=== PATIENT | male | born 1975 | race Asian ===

== ENCOUNTER 2020-06-04 18:00 | Outpatient (REF) | payer MEDICAID, SELFPAY ==
[2020-06-06 11:56] LABS: HSV 1 DNA Result Negative (Negative); HSV 2 DNA Result Negative (Negative)
== END 2020-06-04 18:20 ==
LOC: NCHCN 18:00
PROVIDERS: PCP Nurse Practitioner; Visit Provider Family Medicine
DX: N48.89 Other specified disorders of penis (principal)
CPT/HCPCS: 87529

== ENCOUNTER 2021-12-16 17:12 | Outpatient (REF) | payer MEDICAID, SELFPAY ==
[2021-12-16 14:39] LABS: Abs Immature Grans 0.02 10^3/uL (0.0-0.06); Absolute Basophil Count 0.02 10^3/uL (0.0-0.2); Absolute Eosinophil Count 0.09 10^3/uL (0.0-0.7); Absolute Lymphocyte Count 1.75 10^3/uL (1.2-3.4); Absolute Monocyte Count 0.23 10^3/uL (0.1-0.8); Absolute Neutrophil Count 3.88 10^3/uL (1.2-6.7); Basophils % 0.3; Eosinophils % 1.5; HCT 44.9 % (40.0-50.0); HGB 14.8 g/dL (13.5-17.5); Immature Grans % 0.3; Lymphocytes % 29.2; MCH 28.2 pg (27.0-33.0); MCV 86 fL (80-95); MPV 11.2 fL (8.0-11.0); Monocytes % 3.8; Neutrophils % 64.9; Platelet Count 302 10^3/uL (130-400); RBC 5.24 10^6/uL (4.36-5.78); RDW 13.5 % (11.8-14.1); RDW-SD 42.4 fL; WBC 5.99 10^3/uL (4.4-10.8)
[2021-12-16 15:05] LABS: Cholesterol 216 mg/dL (<200); HDL Cholesterol 29 mg/dL (40-60); Triglyceride 456 mg/dL (<150)
[2021-12-16 15:07] LABS: ALT 62 U/L (16-63); AST 27 U/L (15-37); Albumin 3.6 g/dL (3.4-5.0); Alkaline Phosphatase 85 U/L (46-116); Anion Gap 13.3 mmol/L (3-11); BUN 20 mg/dL (7-18); Bilirubin, Total 0.3 mg/dL (0.2-1.0); CO2 25.7 mmol/L (21.0-32.0); CREATININE 1.1 mg/dL (0.70-1.30); Calcium 8.7 mg/dL (8.5-10.1); Chloride 103 mmol/L (98-107); Glucose 185 mg/dL (74-106); Potassium 3.7 mmol/L (3.5-5.1); Sodium 142 mmol/L (136-145); TSH 1.42 uIU/mL (0.36-3.74); Total Protein 7.2 g/dL (6.4-8.2)
[2021-12-16 15:40] LABS: LDL CHOLESTEROL 120 mg/dL (<100)
== END 2021-12-16 17:13 | disposition home or self-care (01) ==
LOC: NCHCN 17:12
PROVIDERS: PCP Nurse Practitioner; Visit Provider Nurse Practitioner Family
DX: R05.3 Chronic cough (principal); G47.33 Obstructive sleep apnea (adult) (pediatric); J30.2 Other seasonal allergic rhinitis; R53.83 Other fatigue; E78.41 Elevated Lipoprotein(a)
CPT/HCPCS: 80053; 80061; 83721; 84443; 85025

== ENCOUNTER → 2021-12-30 01:59 | Outpatient (CLI) | payer MEDICAID, SELFPAY ==
--- NOTE | 2021-12-30 | DI.RAD_ITS ---
Exam(s) XR CHEST 2V PA LATERAL EXAM: XR CHEST 2V PA LATERAL CLINICAL HISTORY: CHRONIC COUGH, R05.3. TECHNIQUE: 2D digital imaging was performed. COMPARISON: CR CHEST 2 VIEWS PA,LAT from 01/20/2014 FINDINGS: 2 views: Heart size is normal. The mediastinum is not widened. Lungs are clear. No infiltrates nor pleural effusions. IMPRESSION: No acute pulmonary findings. DATA REPOSITORY: RADIATION DOSE DELIVERED:
== END ==
PROVIDERS: PCP Nurse Practitioner; Visit Provider Nurse Practitioner Family
DX: R05.3 Chronic cough (principal)
CPT/HCPCS: 71046

== ENCOUNTER 2022-01-15 18:46 | Outpatient (REF) | payer MEDICAID, SELFPAY | END 2022-01-15 18:47 | disposition home or self-care (01) | LOC: NCHCN 18:46 | PROVIDERS: PCP Nurse Practitioner; Visit Provider Nurse Practitioner Family | DX: R73.9 Hyperglycemia, unspecified (principal) | CPT/HCPCS: 83036 ==

== ENCOUNTER 2022-08-11 18:23 | Outpatient (REF) | payer MEDICAID, SELFPAY ==
[2022-08-11 14:53] LABS: Abs Immature Grans 0.01 10^3/uL (0.0-0.06); Absolute Basophil Count 0.02 10^3/uL (0.0-0.2); Absolute Eosinophil Count 0.11 10^3/uL (0.0-0.7); Absolute Lymphocyte Count 1.75 10^3/uL (1.2-3.4); Absolute Monocyte Count 0.37 10^3/uL (0.1-0.8); Absolute Neutrophil Count 2.87 10^3/uL (1.2-6.7); Basophils % 0.4; Eosinophils % 2.1; HGB 14.4 g/dL (13.5-17.5); Immature Grans % 0.2; Lymphocytes % 34.1; MCH 28.9 pg (27.0-33.0); MCHC 33.5 % (32.0-36.0); MCV 86 fL (80-95); MPV 10.7 fL (8.0-11.0); Monocytes % 7.2; Platelet Count 282 10^3/uL (130-400); RBC 4.98 10^6/uL (4.36-5.78); RDW-SD 40.5 fL; WBC 5.13 10^3/uL (4.4-10.8)
[2022-08-11 15:39] LABS: ALT 81 U/L (16-63); AST 29 U/L (15-37); Albumin 3.6 g/dL (3.4-5.0); Alkaline Phosphatase 84 U/L (46-116); Anion Gap 10.1 mmol/L (3-11); BUN 12 mg/dL (7-18); Bilirubin, Total 0.4 mg/dL (0.2-1.0); CO2 26.9 mmol/L (21.0-32.0); Calcium 9.1 mg/dL (8.5-10.1); Calculated LDL 130 mg/dL (<100); Chloride 105 mmol/L (98-107); Cholesterol 216 mg/dL (<200); Estimated GFR 93.42 (mL/min/1.73m2); Glucose 122 mg/dL (74-106); HDL Cholesterol 33 mg/dL (40-60); Potassium 3.8 mmol/L (3.5-5.1); Sodium 142 mmol/L (136-145); Total Protein 6.6 g/dL (6.4-8.2); Triglyceride 266 mg/dL (<150); Vitamin B12 1512 pg/mL (193-986)
[2022-08-11 15:46] LABS: Hemoglobin A1C 5.8 % (<5.7)
== END 2022-08-11 18:24 | disposition home or self-care (01) ==
LOC: NCHCN 18:23
PROVIDERS: PCP Nurse Practitioner; Visit Provider Nurse Practitioner Family
DX: R53.83 Other fatigue (principal); E78.41 Elevated Lipoprotein(a); F41.8 Other specified anxiety disorders; R73.9 Hyperglycemia, unspecified; G47.33 Obstructive sleep apnea (adult) (pediatric); R79.89 Other specified abnormal findings of blood chemistry
CPT/HCPCS: 80053; 80061; 82607; 83036; 85025

== ENCOUNTER 2023-04-14 01:21 | Outpatient (CLI) | payer MEDICAID, SELFPAY ==
[2023-04-14] MEDS: Levalbuterol HFA 15 GM INH 4 PUFF IH (14:36)
[2023-04-14] MEDS: Inhaler, Assist Device 1 EACH MC (14:37)
--- NOTE | 2023-04-17 08:53 | W.PFT ---
Date of service: 04/14/23 Time of Service: 13:10 Pulmonary Function Test Result Indications: Dyspnea Interpretation Spirometry: There is no airflow limitation. No significant bronchodilator response. Restrictive appearing spirometry. Lung Volumes: There is mild restrictive lung disease. Diffusion Capacity: Unable to perform Airway Pressure: Normal airways resistance. Impression Mild restrictive lung disease. Patient unable to perform DLCO, can consider chest imaging to assess for ILD and can consider muscle pressure testing to assess for muscular weakness as a cause. Clinical Correlation therefore is recommended.
== END 2023-04-14 01:22 | disposition home or self-care (01) ==
LOC: RT 01:21
PROVIDERS: PCP Nurse Practitioner Family; Visit Provider Nurse Practitioner Family
DX: R06.09 Other forms of dyspnea (principal)
CPT/HCPCS: 94060; 94726

== ENCOUNTER 2024-04-05 21:45 | Outpatient (REF) | payer MEDICAID, SELFPAY ==
[2024-04-05 16:30] LABS: Abs Immature Grans 0.02 10^3/uL (0.0-0.06); Absolute Basophil Count 0.02 10^3/uL (0.0-0.2); Absolute Eosinophil Count 0.12 10^3/uL (0.0-0.7); Absolute Lymphocyte Count 1.89 10^3/uL (1.2-3.4); Absolute Monocyte Count 0.37 10^3/uL (0.1-0.8); Absolute Neutrophil Count 4.25 10^3/uL (1.2-6.7); Basophils % 0.3 %; Eosinophils % 1.8 %; Immature Grans % 0.3 %; Lymphocytes % 28.3 %; MCH 30.2 pg (27.0-33.0); MCHC 33.3 % (32.0-36.0); MCV 91 fL (80-95); MPV 10.7 fL (8.0-11.0); Monocytes % 5.5 %; Neutrophils % 63.8 %; Platelet Count 330 10^3/uL (130-400); RBC 4.97 10^6/uL (4.36-5.78); RDW 13.1 % (11.8-14.1); RDW-SD 42.6 fL; WBC 6.67 10^3/uL (4.4-10.8)
[2024-04-05 17:48] LABS: ALT 54 U/L (16-63); AST 21 U/L (15-37); Alkaline Phosphatase 85 U/L (46-116); Anion Gap 13.1 mmol/L (3-11); BUN 29 mg/dL (7-18); Bilirubin, Total 0.43 mg/dL (0.2-1.0); CO2 26.9 mmol/L (21.0-32.0); Calcium 9.3 mg/dL (8.5-10.1); Chloride 102 mmol/L (98-107); Cholesterol 277 mg/dL (<200); Estimated GFR 92.26 (mL/min/1.73m2); Glucose 114 mg/dL (74-106); HDL Cholesterol 35 mg/dL (40-60); Sodium 142 mmol/L (136-145); Total Protein 7.7 g/dL (6.4-8.2); Triglyceride 884 mg/dL (<150)
[2024-04-05 18:03] LABS: LDL CHOLESTEROL 124 mg/dL (<100)
[2024-04-05 18:55] LABS: Hemoglobin A1C 5.1 % (<5.7)
--- OUTSIDE RECORDS SUMMARY | 2024-04-05 21:48 | XMS_ITS | Data Portability ---
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 At this point in time, Abdullahi generally declines further workup and/or evaluation for complaints of fatigue, mild dyspnea on exertion, and history of severe ALEXY. Current medications include cetirizine and Flonase. Details below. Abdullahi agrees that 1 year follow-up for routine annual exam, will plan on yearly labs at this time. Emphasized the importance of follow-up earlier should he develop any worsening or new symptoms and/or is ready for further evaluation and discussion. Not available 12/14/2023 12:04:32 04/05/2024 04/05/2024 Abdullahi declines a emergency medical technician basic today. Craig language Cantonese. Fluent in conversational Hebrew. [email or web address] Not available 04/05/2024 10:07:19 Plan of Treatment Reminders Order Date Submit Date Provider Last Modified By Organization Details Last Modified Time Details Appointments Follow Up 30 2023 09:00A M Chloe Cross Not available Not available Not available Nurse Visit 20 2023 10:00A M [facility] Nursing Staff Not available Not available Not available Annual Wellness Exam 40 2024 10:00A M Chloe Cross Not available Not available Not available Lab HbA1c (hemoglo bin A1c), blood - 1 mint and 1 lav tube collecte d from right ac, pt tolerate d well. 2023 [email or web address] [facility] (Registration ), [address] [place] [address] [place], [id number], 04/05/2024 12:27:52 lipid panel, serum - 1 mint and 1 lav tube collecte d from right ac, pt tolerate d well. [address] [facility] (Registration ), [address] [place] [address] [place], [id number], 04/05/2024 12:27:52 CBC w/ auto diff - 1 mint and 1 lav tube collecte d from right ac, pt tolerate d well. 2023 [facility] (Registration ), [address] [place] [address] [place], [id number], 04/05/2024 16:38:04 CMP, serum or plasma - 1 mint and 1 lav tube collecte d from right ac, pt tolerate d well. 2023 [facility] (Registration ), [address] [place] [address] [place], [address], 04/05/2024 17:55:16 Referral None recorded . Procedures None recorded . Surgeries None recorded . Imaging CT, abdomen + pelvis, w/ contrast - 2 weeks right lower ABD tenderne ss w/ active guarding + diarrhea . 2023 [facility] (Radiology), [address] [place] [address] [place], [address], 04/05/2024 11:45:29 Medication Orders None recorded . Patient TargetsNo targets recorded. Patient Instructions Encounter Date Encounter Id Patient Instructions Last Modified By Organization Details Last Modified Time 12/14/2023 [id number] 1 year follow up for your annual wellness exam. We will plan on blood work during this appointment. Not available 12/14/2023 11:41:28 04/05/2024 [id number] When You Want to Lose Weight: Care Instructions [email or web address] Not available 04/05/2024 12:27:52 back care and preventing injuries: care instructions [email or web address] Not available 04/05/2024 12:27:52 getting back to normal after low back pain: care instructions [email or web address] Not available 04/05/2024 12:27:52 learning about relief for back pain Not available 04/05/2024 12:27:52 possible appendicitis: care instructions [email or web address] Not available 04/05/2024 12:27:52 1 week follow up. Blood work today. CT scan ordered for your stomach. Please go to the ER if your stomach symptoms worsen. [email or web address] Not available 04/05/2024 09:42:11 Reason for Referral None Reported. Results Created Date Observation Date Name Description Value Unit Range Abnormal Flag Note LastModifiedBy Organization Detail LastModifiedTime 02/21/20 24 12/30/2021 XR, chest No observ ation record ed. [email or web address] Not Available 02/20 22:10:05 02/21/20 24 12/30/2021 imagi ng/di agnos tic resul t No observ ation record ed. [email or web address] Not Available 02/20 22:10:10 Result Notes None recorded. Problems Name Problem SNOMED Code Status Onset Date Resolution Date Notes Provider Name and Address Organization Details Recorded Time Obstruct jimbo sleep apnea syndrome 65331908 Active 2014 SEVERE - refuses treatmen t CHLOE CROSS, [employer] [address], [place], [address] , [facility] 4 11:52:41 Anxiety disorder 916903215 Active 2015 RHYS warren, [place] - [facility] 4 09:07:47 Traumati c or non-trau matic injury 966413825 Completed 201502/14/2016 01/11/20 16 - Comments only - Roxanne Ruffin MD - The appearan ce and distribu tion of his rash appear more to be like flea bites then recurren t scabies. I have told him to stop using the permethr in. He ronda use some hydrocor tisone cream on the itchy bites, and I have suggeste d using daily cetirizi ne 10 mg, which would help both with the itching from flea bites, as well as allergic rhinitis . I told him it would be importan t to talk to the animals that to treat them for fleas. Problem Code: T14.90; Problem Code Type: ICD-10; Not Available [facility] 3 04:28:49 Dermatop hytosis 09924742 Active 2020 RHYS warren, [facility] 4 09:07:58 Screenin g for malignan t neoplasm of colon Completed 202010/05/2023 Irma Atkins [facility] 4 11:37:10 Acute upper respirat ory infectio n 08164625 Completed 202110/05/2023 Irma warren, [facility] 4 11:37:28 Seasonal allergic rhinitis 217362920 Active 2021 RHYS warren, [facility] 4 09:08:35 Chronic cough 52573583 Active 2021 RHYS WAYNE [facility] 4 09:07:52 Lipoprot ein above referenc e range 125738681 [facility] 09:08:19 Fatigue 47671335 Active 2021 RHYS warren, [facility] 4 09:08:14 Hypergly cemia 06312780 Completed 202103/13/2023 Problem Code: R73.9; Problem Code Type: ICD-10; Not Available [facility] 4 05:37:55 Adult health examinat ion Completed 201403/19/2021 Problem Code: Z00.00; Problem Code Type: ICD-10; Irma warren, [facility] 4 11:37:04 Eczema 51167431 Completed 202003/19/2021 Problem Code: L30.9; Problem Code Type: ICD-10; Not Available [facility] 3 04:28:52 Cough 86919085 Completed 201509/05/2015 Problem Code: R05; Problem Code Type: ICD-10; Not Available [facility] 3 04:28:53 Heartbur n 54753414 Completed 201306/07/2019 Problem Code: R12; Problem Code Type: ICD-10; Not Available [facility] 3 04:28:53 Localize d eruption of skin 547076074 Completed 201409/05/2015 Problem Code: R21; Problem Code Type: ICD-10; Not Available [facility] 3 04:28:53 Disorder of penis 78795778 Completed 201903/19/2021 Problem Code: N48.9; Problem Code Type: ICD-10; Not Available [facility] 3 04:28:53 Infectio n screenin g Completed 201502/23/2017 Problem Code: Z11.9; Problem Code Type: ICD-10; Not Available [facility] 3 04:28:53 Pain in right arm 466675686 Completed 201903/19/2021 Problem Code: M79.601; Problem Code Type: ICD-10; Not Available [facility] 3 04:28:54 Adult health examinat ion Completed 201508/25/2016 Problem Code: Z00.00; Problem Code Type: ICD-10; [facility] 4 11:37:04 Screenin g for disorder Completed 201703/19/2021 Problem Code: Z13.89; Problem Code Type: ICD-10; Not Available [facility] 3 04:28:54 Pain of left knee joint 58345942837 4107 Completed 201903/19/2021 Problem Code: M25.562; Problem Code Type: ICD-10; Not Available [facility] 3 04:28:55 Dyspnea 512105520 Completed 201009/05/2015 RHYS warren, [facility]. 4 09:08:04 Adult health examinat ion Completed 202210/05/2023 Tia Milly kelvin, [facility]. 4 11:37:04 Dyspnea 088885968 Active 2022 RHYS warren, [facility]. 4 09:08:03 Prediabe matti 673725866 Active 2022 RHYS warren, [facility]. 4 09:08:29 Elevated blood-pr essure reading without diagnosi s of hyperten timoteo 186939075 Active 2022 RHYS warren, [facility]. 4 09:08:09 Lipoma of chest wall 642751288 Active 2010 LT chest Tia Milly kelvin, [facility]. 4 11:41:57 Dyspnea on exertion 53547493 Active [address] [place], [address] , [facility] 4 11:54:48 Right lower quadrant pain 874491344 Active [address], [facility] [address] , [facility]. 4 09:33:18 Overweig ht 522060762 Active [address], [place], [address] , [facility]. 4 09:33:34 Low back pain 391440723 Active [address], [place], [address] , [place] [facility], [facility]. 09:34:56 Problem Notes None recorded. Procedures Surgical History None recorded. Imaging Results Imaging Date Name Status LastModified by Organiz ation Details LastModified Time 12/30/2021 XR, chest completed Information no t available 02/21/2024 22:10:05 12/30/2021 imaging/diag nostic result completed Information not available 02/21/2024 22:10:10 Procedure Notes None recorded. Medical Equipment None Reported. Medications Name Sig Start Date Stop Date Status Note LastModified by Organization Details LastModified Time biotin 10 mg tablet once a day 11/28 completed OTC Not Available Not Available Not Available Augmentin 875 mg-125 mg tablet Take 1 tablet by mouth twice a day 12/05 completed Not Available Not Available Not Available cetirizine 10 mg tablet TAKE 1 TABLET BY MOUTH EVERY DAY 2023 active Not Available Not Available Not Avai lable azithromyci n 250 mg tablet Take 2 by mouth now, then take 1 by mouth daily x 4 days 07/30 completed Not Available Not Available Not Available aspirin 325 mg tablet Take 1 tab by mouth PRN 09/05 completed Not Available Not Available Not Available Diphenhydra mine HCl (Sleep) 25 mg tablet 1tab .prn allergies 02/16 completed Not Available Not Available Not Available Saman's wort 300 mg tablet 08/24 completed Not Available Not Available Not Available Vitamins B Complex capsule one tab daily 2018 active OTC Not Available Not Available Not Avai lable Vitamin C 100 mg tablet 1000 mg daily 2016 active Not Available Not Available Not Avai lable Elimite 5 % topical cream Apply to total body, (except face and scalp). Leave on 14 hrs, shower off in morning. 09/04 completed Not Available Not Available Not Available hydrocortis one 2.5 % topical cream apply cream twice a day as needed to bites on legs. 01/24 completed Not Available Not Available Not Available mupirocin 2 % topical ointment APPLY EXTERNALL Y TO THE AFFECTED AREA TWICE DAILY FOR 1 WEEK OR UNTIL RESOLVED 09/05 completed Not Available Not Available Not Available ketoconazol e 2 % topical cream Apply twice a day as needed 11/28 completed Not Available Not Available Not Available clotrimazol e 1 % topical cream apply twice daily to affected area as directed 06/19 completed Not Available Not Available Not Available naproxen 500 mg tablet Take 1 tab by mouth twice daily as needed for pain 07/04 completed Not Available Not Available Not Available Vitamin B-12 1,000 mcg tablet 2 tabs daily 06/07 completed OTC Not Available Not Available Not Available glucosamine sulfate 1,000 mg capsule one tab daily 09/05 completed OTC Not Available Not Available Not Available Acetaminoph en PM 25 mg-500 mg tablet liquid medicatio n (OTC) Premier Value 2016 active Not Available Not Available Not Avai lable biotin once daily 2020 active OTC Not Available Not Available Not Avai lable Vitamin-C 1000 mg once a day 11/28 completed Not Available Not Available Not Available vitamin E (dl, acetate) 180 mg (400 unit) capsule 1 tab daily 09/05 completed OTC Not Available Not Available Not Available PreserVisio n AREDS-2 (with omega-3) 250 mg-2.5 mg-0.5 mg capsule 08/24 completed Not Available Not Available Not Available Dymista 137 mcg-50 mcg/spray nasal spray [place] 1 spray into both nostrils twice a day 01/30 completed Not Available Not Available Not Available psyllium husk 0.4 gram capsule Take 1 capsule every day by oral route as directed. active Not Available Not Available No t Available Voltaren Arthritis Pain 1 % topical gel Apply every six hours as needed 11/28 completed Not Available Not Available Not Available Vitals Date Recorded Body height Body mass index (BMI) Body weight Body temperature Oxygen saturation Oxygen saturation in Arterial blood by Pulse oximetry Heart rate Systolic blood pressure Diastolic blood pressure Provider Name and Address Organization Details Last Updated DateTime 4 165.1 cm 25.8 kg/m2 28206.5 2 g 97.9 [degF] 98 % 98 % 88 /min 120 mm[Hg] 74 mm[Hg] Kaley Moore MA [facility] 11:21:01 Date Recorded Body height Body mass index (BMI) Body weight Body temperature Heart rate Oxygen saturation Oxygen saturation in Arterial blood by Pulse oximetry Systolic blood pressure Diastolic blood pressure Provider Name and Address Organization Details Last Updated DateTime 165.1 cm 26.6 kg/m2 93400.7 8 g 97.7 [degF] 104 /min 97 % 97 % 115 mm[Hg] 69 mm[Hg] Kaley Moore MA [facility] 09:05:41 Social History Question Answer Notes LastModified by Organizat ion Details LastModified Time Tobacco Smoking Status Never Smoker Kaley Moore MA null, [facility] 04/05/2024 09:06:22 What Was The Date Of Your Most Recent Tobacco Screening? 04/05/2024 [email or web address] Information not available 04/05/2024 Has Tobacco Cessation Counseling Been Provided? No [email or web address] Information not available 04/05/2024 Do You Or Have You Ever Used Any Other Forms Of Tobacco Or Nicotine? No [email or web address] Information not available 04/05/2024 Sex: Male Functional Status None recorded. Mental Status None recorded. Family History Relationship Description Onset Age of this Age Resolved Age Notes LastModified by Organization Details LastModified Time Mother Family history unknown [email or web address] Not available 2022 04:01:07 Medical History No medical history recorded. Immunizations Vaccine Type Date Status Provider Name and Address Organization Details Recorded Time COVID-19, mRNA, LNP-S, PF, sanjeev-sucrose, 30 mcg/0.3 mL 09/02/2023 completed Adelia Kim RN [facility] 09/02/2023 09:37:11 Influenza, split virus, trivalent, PF 04/05/2024 completed CHLOE CROSS, BRE[employer] [address], [place], [address], [facility] 04/05/2024 10:00:48 MMR 02/06/1993 completed Not Available [facility] 05:49:18 MMR 02/21/2016 completed Not Available [facility] 05:49:18 DTaP, unspecified formulation 02/06/1993 completed Not Available [facility] 04/17/2023 05:49:18 DTaP, unspecified formulation 03/22/1993 completed Not Available [facility] 04/17/2023 05:49:18 Tdap 03/05/2016 completed Not Available [facility] 05:49:19 Tdap 05/28/2011 completed Not Available [facility] 05:49:19 Influenza, split virus, trivalent, preservative 09/13/2015 completed Not Available [facility] 04/17/2023 05:49:20 Influenza, split virus, trivalent, preservative 02/16/2015 completed Not Available [facility] 04/17/2023 05:49:20 Influenza, split virus, trivalent, preservative 02/21/2016 completed Not Available [facility] 04/17/2023 05:49:20 Influenza, split virus, quadrivalent, PF 03/19/2021 completed Not Available [facility] 04/17/2023 05:49:20 Influenza, split virus, quadrivalent, PF 05/27/2019 completed Not Available [facility] 04/17/2023 05:49:20 Influenza, split virus, quadrivalent, preservative 02/23/2017 completed Not Available [facility] 04/17/2023 05:49:21 Influenza, split virus, quadrivalent, preservative 05/10/2018 completed Not Available [facility] 04/17/2023 05:49:21 varicella 02/21/2016 completed Not Available [facility] 05:49:21 varicella 04/29/2016 completed Not Available [facility] 05:49:22 SARS-COV-2 (COVID-19) vaccine, UNSPECIFIED 03/04/2022 completed Not Available [facility] 04/17/2023 05:49:22 polio, unspecified formulation 02/06/1993 completed Not Available [facility] 04/17/2023 05:49:23 polio, unspecified formulation 03/22/1993 completed Not Available [facility] 04/17/2023 05:49:23 Influenza, split virus, quadrivalent, PF 02/25/2023 completed Not Available [facility] 06/19/2023 05:33:16 Past Encounters Encounter ID Performer Location Encounter Start Date Encounter Closed Date Diagnosis/Indication Diagnosis SNOMED-CT Code Diagnosis ICD10 Code [id number] Adelia Kim RN [facility] [address] [place] [address] 09/02/2023 09:21:35 09/02/2023 09:32:17 Administration of SARS-CoV-2 antigen vaccine 985928452 Z23 [id number] [employer] [facility] [address] [place] [address] 12/14/2023 11:03:26 12/14/2023 11:46:14 Seasonal allergic rhinitis 531420843 J30.2 Obstructiv e sleep apnea syndrome 21356997 G47.33 Dyspnea on exertion 6084 5006 R06.09 Fatigue 56067401 R53.83 Anxiety disorder 5245979 06 F41.9 Prediabetes 019364425 R7 3.03 Lipoprotei n above reference range 876768365 E78.41 Elevated blood-pressure reading without diagnosis of hypertension 306665863 R03.0 [id number] [facility] [address] [place] [address] 04/05/2024 09:00:20 04/05/2024 09:52:38 Lipoprotein above reference range 115838067 E78.41 Overweight 589135886 E66 .3 Seasonal a llergic rhinitis 324958704 J30.2 Obstructiv e sleep apnea syndrome 68878872 G47.33 Dyspnea on exertion 6084 5006 R06.09 Fatigue 96728176 R53.83 Prediabetes 142665193 R7 3.03 Right lowe r quadrant pain 071300450 R10.31 Low back pain 943969117 M54.50 Active or passive immunization 459370289 Z23 Health Concerns Section Related Observation LastModified by Organization Detai ls LastModified Time None Recorded Concern Status LastModified by Organization Details LastModified Time None Recorded Advance Directives Directive None Recorded Payers Encounter Date Sequence Insurance Name Policy Number Policy Gumzan Covered Member ID Guzman Member ID Guarantor Name 09/02/2023 1 [facility] (MEDICAID) Abdullahi Lewis [employer] [id number] Abdullahi Solis 12/14/2023 1 [facility] (MEDICAID) Abdullahi Lewis [employer] [id number] Abdullahi Lewis [employer] 04/05/2024 1 [facility] (MEDICAID) Abdullahi Lewis Sol[employer] [id number] Abdullahi Solis Notes Date Note Type Note Provider Name and Address Organization Details Recorded Time 12/14/2023 text/html HPI Notes: Saloni rhoades presents to [facility] today for 6 month routine chronic care follow up. Medical history includes - elevated BG (due for A1C), hyperlipidemia, Seasonal and environmental allergies, and severe ALEXY (untreated). Denies any specific questions or concerns today. SH: household - self. Has several tenants. 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 CHLOE CROSS, [employer] [address], [place], [address], [facility], [facility]. 12/14/2023 12:04:41 04/05/2024 text/html HPI Notes: Saloni rhoades presents to [facility] today for evaluation of acute abdominal and back pain. Medical history includes - elevated BG (due for A1C), hyperlipidemia, Seasonal and environmental allergies, and severe ALEXY (untreated). Describes approximately 2 weeks of lower back pain plus right lower quadrant abdominal pain. Abdominal pain has been fairly persistent over the past 2 weeks, aching sensation, worse at different periods during the day (?). Also notes loose stool over the past week. Denies any fevers or chills. Mild nausea in the morning (?). Denies any urinary symptoms. Unable to correlate abdominal symptoms with diet. Denies any recent sick contacts. Approximately 2 weeks of lower generalized back pain, started after heavy lifting at work. Denies any lower extremity symptoms, radiating pain, or paresthesias. He has been resting at home. Occasional use of aspirin. Took medication specifically for back pain, though unable to confirm whether this was Tylenol or ibuprofen, or combination. SH: household - self. Has several tenants. 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 [employer] [address], [place], [address], [facility]. 04/05/2024 10:08:54
--- OUTSIDE RECORDS SUMMARY | 2024-04-05 21:49 | XMS_ITS | Continuity of Care Document ---
Author Organization [facility] Address [place] [address] Care Team Providers Care Hospital Monitor Name Role Phone TAY, CHLOE Primary Care Provider [phone] Assessment Encounter Date Assessment Date Assessment LastModified by Organization Details LastModified Time 04/05/2024 04/05/2024 Abdullahi eckert a medical translator today. [place] language Cantonese. Fluent in conversational Syriac. [email or web address] Not available 04/05/2024 10:07:19 Plan of Treatment Reminders Order Date Submit Date Provider Last Modified By Organization Details Last Modified Time Details Appointments Follow Up 30 2023 09:00A M Chloe Cross Not available Not available Not available Nurse Visit 20 2023 10:00A M [facility] Nursing Staff Not available Not available Not available Annual Wellness Exam 40 2024 10:00A M Chloe Cross Not available Not available Not available Lab HbA1c (hemoglo bin A1c), blood - 1 mint and 1 lav tube collecte d from right ac, pt tolerate d well. 2023 024 [email or web address] [facility] (Registration ), [address] [place] [address] [place], [address], 04/05/2024 12:27:52 lipid panel, serum - 1 mint and 1 lav tube collecte d from right ac, pt tolerate d well. 2023 024 [email or web address] [facility] (Registration ), [address] [place] [address] [place], [address], 04/05/2024 12:27:52 CBC w/ auto diff - 1 mint and 1 lav tube collecte d from right ac, pt tolerate d well. 2023 [facility] (Registration ), [address] [place] [address] [place], [address], 04/05/2024 16:38:04 CMP, serum or plasma - 1 mint and 1 lav tube collecte d from right ac, pt tolerate d well. 2023 [facility] (Registration ), [address] [place] [address] [place], [address], 04/05/2024 17:55:16 Referral None recorded . Procedures None recorded . Surgeries None recorded . Imaging CT, abdomen + pelvis, w/ contrast - 2 weeks right lower ABD tenderne ss w/ active guarding + diarrhea . 2023 [facility] (Radiology), [address] [place] [address] [place], [address], 04/05/2024 11:45:29 Medication Orders None recorded . Patient TargetsNo targets recorded. Patient Instructions Encounter Date Encounter Id Patient Instructions Last Modified By Organization Details Last Modified Time 04/05/2024 [id number] When You Want to Lose Weight: Care Instructions [email or web address] Not available 04/05/2024 12:27:52 back care and preventing injuries: care instructions [email or web address] Not available 04/05/2024 12:27:52 getting back to normal after low back pain: care instructions [email or web address] Not available 04/05/2024 12:27:52 learning about relief for back pain Not available 04/05/2024 12:27:52 possible appendicitis: care instructions Not available 04/05/2024 12:27:52 1 week follow up. Blood work today. CT scan ordered for your stomach. Please go to the ER if your stomach symptoms worsen. [email or web address] Not available 04/05/2024 09:42:11 Reason for Referral None Reported. Problems Name Problem SNOMED Code Status Onset Date Resolution Date Notes Provider Name and Address Organization Details Recorded Time Obstruct jimbo sleep apnea syndrome 02509991 Active 2014 SEVERE - refuses treatmen t CHLOE CROSS, BARREL BURNER [address], [place], [address] , [facility] 4 11:52:41 Anxiety disorder 838432400 [facility] 4 09:07:47 Traumati c or non-trau matic injury 959661945 Completed 201502/14/2016 01/11/20 16 - Comments only [...] T14.90; Problem Code Type: ICD-10; Not Available [facility] 3 04:28:49 Dermatop hytosis 22036746 Active 2020 RHYS warren, [facility] 4 09:07:58 Screenin g for malignan t neoplasm of colon Completed 202010/05/2023 Irma Atkins [facility], [facility] 4 11:37:10 Acute upper respirat ory infectio n 94313951 Completed 202110/05/2023 Irma Atkins [facility] 4 11:37:28 Seasonal allergic rhinitis 677017226 Active 2021 RHYS warren, [facility] 4 09:08:35 Chronic cough 27980734 Active 2021 RHYS warren, [facility] 4 09:07:52 Lipoprot ein above referenc e range 508896621 Active 2021 [facility] 4 09:08:19 Fatigue 75475838 Active 2021 RHYS warren, [facility] 4 09:08:14 Hypergly cemia 88627691 Completed 202103/13/2023 Problem Code: R73.9; Problem Code Type: ICD-10; Not Available [facility] 4 05:37:55 Adult health examinat ion Completed 201403/19/2021 Problem Code: Z00.00; Problem Code Type: ICD-10; [facility] 4 11:37:04 Eczema 59951011 Completed 202003/19/2021 Problem Code: L30.9; Problem Code Type: ICD-10; Not Available [facility] 3 04:28:52 Cough 34858323 Completed 201509/05/2015 Problem Code: R05; Problem Code Type: ICD-10; Not Available [facility] 3 04:28:53 Heartbur n 85389374 Completed 201306/07/2019 Problem Code: R12; Problem Code Type: ICD-10; Not Available [facility] 3 04:28:53 Localize d eruption of skin 440249494 Completed 201409/05/2015 Problem Code: R21; Problem Code Type: ICD-10; Not Available [facility] 3 04:28:53 Disorder of penis 47537622 Completed 201903/19/2021 Problem Code: N48.9; Problem Code Type: ICD-10; Not Available [facility] 3 04:28:53 Infectio n screenin g Completed 201502/23/2017 Problem Code: Z11.9; Problem Code Type: ICD-10; Not Available [facility] 3 04:28:53 Pain in right arm 999384204 Completed 201903/19/2021 Problem Code: M79.601; Problem Code Type: ICD-10; Not Available [facility] 3 04:28:54 Adult health examinat ion Completed 201508/25/2016 Problem Code: Z00.00; Problem Code Type: ICD-10; Irma warren, [facility]. 4 11:37:04 Screenin g for disorder Completed 201703/19/2021 Problem Code: Z13.89; Problem Code Type: ICD-10; Not Available [facility] 3 04:28:54 Pain of left knee joint 49492082745 4107 Completed 201903/19/2021 Problem Code: M25.562; Problem Code Type: ICD-10; Not Available [facility] 3 04:28:55 Dyspnea 207199790 Completed 201009/05/2015 RHYS warren, [facility]. 4 09:08:04 Adult health examinat ion Completed 202210/05/2023 Irma warren, [facility]. 4 11:37:04 Dyspnea 772335856 Active 2022 RHYS warren, [facility]. 4 09:08:03 Prediabe matti 985254424 Active 2022 RHYS warren, [facility]. 4 09:08:29 Elevated blood-pr essure reading without diagnosi s of hyperten timoteo 158470770 Active 2022 RHYSSandra SIMMSUE kelvin, [facility]. 4 09:08:09 Lipoma of chest wall 583866726 Active 2010 LT chest Irma warren, [facility]. 4 11:41:57 Dyspnea on exertion 16610101 Active 2023 NATO CABRAL [address], [place], [address] , [facility] 11:54:48 Right lower quadrant pain 145622578 Active 2023 NATO CABRAL [address], [place], [address] , [facility] 09:33:18 Overweig ht 712526609 Active 2023 NATO CABRAL [address], [place], [address] , [facility] 09:33:34 Low back pain 296237255 Active 2023 NATO CABRAL [address], [place], [address] , [facility] 09:34:56 Problem Notes None recorded. Medical Equipment None Reported. [...] completed Not Available Not Available Not Available Seat Pleasant's wort 300 mg tablet 08/24 completed Not [...] Available Dymista 137 mcg-50 mcg/spray nasal spray [place] 1 spray into both nostrils twice a [...] Last Updated DateTime 165.1 cm 26.6 kg/m2 20975.7 8 g 97.7 [degF] 104 /min 97 % 97 % 115 mm[Hg] 69 mm[Hg] Kaley Moore MA [facility] 09:05:41 Social History Question Answer Notes LastModified by Organizat ion Details LastModified Time Tobacco Smoking Status Never Smoker Kaley Moore MA null, [facility] 04/05/2024 09:06:22 What Was The Date Of Your Most Recent Tobacco Screening? 04/05/2024 Information not available 04/05/2024 Has Tobacco Cessation Counseling Been Provided? No Information not available 04/05/2024 Do You Or Have You Ever Used Any Other Forms Of Tobacco Or Nicotine? No Information not available 04/05/2024 Sex: Male Functional [...] virus, trivalent, PF 04/05/2024 completed CHLOE CROSS, BARREL BURNER [address], [place], [address], [facility]. 04/05/2024 10:00:48 MMR 02/06/1993 completed Not Available [facility] 05:49:18 MMR 02/21/2016 completed Not Available [facility] 05:49:18 DTaP, unspecified formulation 02/06/1993 completed Not Available [facility] 04/17/2023 05:49:18 DTaP, unspecified formulation 03/22/1993 completed Not Available [facility] 04/17/2023 05:49:18 Tdap 03/05/2016 completed Not Available [facility] 05:49:19 Tdap 05/28/2011 completed Not Available [facility] 05:49:19 Influenza, split virus, trivalent, preservative 09/13/2015 completed Not Available [facility] 04/17/2023 05:49:20 Influenza, split virus, trivalent, preservative 02/16/2015 completed Not Available [facility] 04/17/2023 05:49:20 Influenza, split virus, trivalent, preservative 02/21/2016 completed Not Available [facility] 04/17/2023 05:49:20 Influenza, split virus, quadrivalent, PF 03/19/2021 completed Not Available [facility] 04/17/2023 05:49:20 Influenza, split virus, quadrivalent, PF 05/27/2019 completed Not Available [facility] 04/17/2023 05:49:20 Influenza, split virus, quadrivalent, preservative 02/23/2017 completed Not Available [facility] 04/17/2023 05:49:21 Influenza, split virus, quadrivalent, preservative 05/10/2018 completed Not Available [facility] 04/17/2023 05:49:21 varicella 02/21/2016 completed Not Available [facility] 05:49:21 varicella 04/29/2016 completed Not Available [facility] 05:49:22 SARS-COV-2 (COVID-19) vaccine, UNSPECIFIED 03/04/2022 completed Not Available [facility] 04/17/2023 05:49:22 polio, unspecified formulation 02/06/1993 completed Not Available [facility] 04/17/2023 05:49:23 polio, unspecified formulation 03/22/1993 completed Not Available [facility] 04/17/2023 05:49:23 Influenza, split virus, quadrivalent, PF 02/25/2023 completed Not Available [facility] 06/19/2023 05:33:16 Past Encounters Encounter ID Performer Location Encounter Start Date Encounter Closed Date Diagnosis/Indication Diagnosis SNOMED-CT Code Diagnosis ICD10 Code [id number] [facility] [address] [place] [address] 04/05/2024 09:00:20 04/05/2024 09:52:38 Lipoprotein above reference range 313000088 E78.41 Overweight 652038429 E66 .3 Seasonal a llergic rhinitis 179133792 J30.2 Obstructiv e sleep apnea syndrome 75335836 G47.33 Dyspnea on exertion 6084 5006 R06.09 Fatigue 08126164 R53.83 Prediabetes 656763170 R7 3.03 Right lowe r quadrant pain 793406045 R10.31 Low back pain 397124705 M54.50 Active or passive immunization 033804704 Z23 Health Concerns Section Related Observation LastModified by Organization Detai ls LastModified Time None Recorded Concern Status LastModified by Organization Details LastModified Time None Recorded Payers Encounter Date Sequence Insurance Name Policy Number Policy Guzman Covered Member ID Guzman Member ID Guarantor Name 04/05/2024 1 [facility] (MEDICAID) Abdullahi Solis [id number] Abdullahi Solis Notes Date Note Type Note Provider Name and Address Organization Details Recorded Time 04/05/2024 text/html HPI Notes: Saloni rhoades presents to [facility] today for evaluation of acute abdominal and [...] Has several tenants. 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 CHLOE CROSS, NATO [address], [place], [address], [facility]. 04/05/2024 10:08:54
--- OUTSIDE RECORDS SUMMARY | 2024-04-05 21:49 | XMS_ITS | Encounter Summary ---
Author Organization [facility] [place] [address] Care Team Providers Care It Intern Name Role Phone Rowena Singer THINNER SPRAYER Primary Care Provider [phone] Encounter Details Date Type Department Care Team (Late st Contact Info) Description 01/22/2016 2:30 PM EDT Office [place] [address] Jaqueline Almanzar MD [facility] [place] [address] History and physical examination, immigration Social History Tobacco Use Types Packs/Day Years Used Date Smoking Tobacco: Never Assessed Sex and Gender Information Value Date Recorded Sex Assigned at Not on file Gender Identity Not on file Sexual Orientation Not on file documented as of this encounter Last Filed Vital Signs Vital Sign Reading Time Taken Comments Blood Pressure 134/76 01/22/2016 2:46 PM EDT Pulse 95 01/22/2016 2:46 PM EDT Temperature - - Respiratory Rate - - Oxygen Saturation - - Inhaled Oxygen Concentration - - Weight - - Height - - Body Mass Index - - documented in this encounter Progress Notes * Jaqueline Almanzar MD - 01/22/2016 2:30 PM EDT Civil Surgeon Encounter CC: Patient is seeking health screening for adjustment of immigration status. HPI: Abdullahi Solis is a 40 y.o. year old male who presents from [place]. I reviewed the available medical and vaccination history. The patient has no significant medical history. Patient has no history oftreatment for active TB, and no current cough, fevers, night sweats or unintended weight loss. No history of STIs. Pt reports no h/o immunosupression. There is no immunization history on file for this patient. Pt reports no h/o varicella. Together we determined that the following are needed: Testing ?? GC ?? Syphilis IgG ?? TB screening by QFGT or TST: they understand if positive, they will be reported to [facility], since this is legally reportable in the state, and also that they will need a CXR and additional counseling regarding the significance of this finding. Vaccinations ?? Tdap ?? MMR ?? Varicella The patient was counseled, and elected to do these with their PCP and instructed in appropriate handling of the documentation. Patient prefers to have documentation sent to their home. Jaqueline Almanzar MD Civil Surgeon Infectious Diseases documented in this encounter Plan of Treatment Not on file documented as of this encounter Visit Diagnoses Diagnosis History and physical examination, immigration Other general medical examination for administrative purposes documented in this encounter Care Teams It Intern Relationship Specialty Start Date End Date Rowena Singer, TYLER [address] [place] [address] PCP - General Family Medicine 09/12/15 documented as of this encounter
--- OUTSIDE RECORDS SUMMARY | 2024-04-05 21:49 | XMS_ITS | Clinical Summary ---
Author Organization [facility] Address [facility] [place] [address] Care Team Providers Care Side Puller Name Role Phone RanjithRowena santos TYLER Primary Care Provider Allergies No known active allergies Medications Medication Sig Dispensed Refills Start Date End Date Status hydrocortisone 2.5 % Cream apply twice a day if needed TO BITES ON LEGS 0 01/11/2016 Active cetirizine (ZYRTEC) 10 mg Tablet take 1 tablet by mouth once daily 0 01/11/2016 Active Active Problems No known active problems Social History Tobacco Use Types Packs/Day Years Used Date Smoking Tobacco: Never Assessed Sex and Gender Information Value Date Recorded Sex Assigned at Not on file Gender Identity Not on file Sexual Orientation Not on file Last Filed Vital Signs Vital Sign Reading Time Taken Comments Blood Pressure 134/76 01/22/2016 2:46 PM EDT Pulse 95 01/22/2016 2:46 PM EDT Temperature - - Respiratory Rate - - Oxygen Saturation - - Inhaled Oxygen Concentration - - Weight - - Height - - Body Mass Index - - Plan of Treatment Health Maintenance Due Date Last Done Comments CT Colonography 1974 Colonoscopy 1974 Colorectal Cancer Screening 1974 FIT DNA 1974 FIT 1974 Sigmoidoscopy (10 year) with FIT yearly 1974 Sigmoidoscopy 1974 HIV screen 1992 Hepatitis C Screening 1992 Lipid Screening 1992 Hepatitis B vaccine (0-59 yrs) (1) 1993 Tetanus/Diphtheria/Pertussis Vaccines (1 - Tdap) 08/17 Covid-19 Vaccine (1 - 2023-24 season) 2024 Influenza (Flu) vaccine (1 o f 1 - Influenza standard series) 02/07/2024 Care Teams Side Puller Relationship Specialty Start Date End Date Rowena Singer APRN [address] [place] [address] PCP - General Family Medicine 09/12/15
== END 2024-04-05 21:46 | disposition home or self-care (01) ==
LOC: NCHCN 21:45
PROVIDERS: PCP Nurse Practitioner Family; Visit Provider Nurse Practitioner Family
DX: R73.03 Prediabetes (principal); R10.31 Right lower quadrant pain; E78.41 Elevated Lipoprotein(a)
CPT/HCPCS: 80053; 80061; 83721; 83036; 85025

== ENCOUNTER 2024-04-18 01:29 | Outpatient (CLI) | payer MEDICAID, SELFPAY ==
--- NOTE | 2024-04-18 | DI.CT_ITS ---
Exam(s) CT ABDOMEN PELVIS W EXAM: CT ABDOMEN PELVIS W CLINICAL HISTORY: RLQ pain x 2 weeks, R10.31, tenderness with active guarding and diarrhea. TECHNIQUE: Imaging Protocol: Axial computed tomography images with coronal and sagittal reformatted images were created and reviewed CONTRAST MATERIAL: Intravenous: Omnipaque 350 Contrast volume:100 ml Oral: yes / COMPARISON: CT CHEST HIGH RESOLUTION from 03/14/2011 CR XR CHEST 2V PA LATERAL from 12/30/2021 FINDINGS: ABDOMEN and PELVIS: Lung Bases: No acute findings. Liver: Decreased attenuation consistent with hepatic steatosis. No suspicious mass. Gallbladder and biliary tract: No radiodense calculus. No biliary dilation. Pancreas: Normal density. No abnormal calcifications or inflammatory process. No evidence of mass. Spleen: Normal. Kidneys: Normal size, contour and axis. No radiodense stones. No obstructive uropathy. No suspicious masses seen. Adrenal glands: No masses seen. Vasculature: Abdominal aorta non-dilated. Soft tissues: Unremarkable. Bladder: No gross wall thickening. No calculi.No focal mass. Bowel: No obstruction. No bowel wall thickening. Appendix normal. Peritoneal cavity: No ascites. No focal collection. No mesenteric inflammatory response. Bones: Unremarkable for age. Reproductive organs: Unremarkable. Lymph nodes: No pathologically enlarged lymph nodes. IMPRESSION:: No acute abnormality in the abdomen or pelvis. RADIATION DOSE DELIVERED: 372.28mGy.cm Total DLP DATA REPOSITORY: All CT scans at this facility are submitted to the National Radiology Data Registry (NRDR) Dose Index Registry (DIR) with the [employer] (ACR). RADIATION OPTIMIZATION: All CT scans at this facility use at least one of these dose optimization te chniques: automated exposure control; mA and/or kV adjustment per patient size (includes targeted exa ms where dose is matched to clinical indication); or iterative reconstruction.
[2024-04-18] MEDS: Breeza Beverage 473 ML BTL PO ×2 (13:57→13:58)
[2024-04-18] MEDS: Omnipaque 350 MG/ML 50 ML BTL PO (13:58)
[2024-04-18] MEDS: Omnipaque 350 MG/ML 100 ML BTL IJ (15:22)
== END 2024-04-18 01:49 ==
LOC: DI 01:30
PROVIDERS: PCP Nurse Practitioner Family; Visit Provider Nurse Practitioner Family
DX: R10.31 Right lower quadrant pain (principal)
CPT/HCPCS: 74177; J3490; Q9967

== ENCOUNTER 2024-05-16 09:43 | Outpatient (REF) | payer MEDICAID, SELFPAY ==
[2024-05-16 15:06] LABS: Cholesterol 227 mg/dL (<200); HDL Cholesterol 37 mg/dL (40-60); Triglyceride 412 mg/dL (<150)
[2024-05-16 16:54] LABS: LDL CHOLESTEROL 127 mg/dL (<100)
== END 2024-05-16 09:44 | disposition home or self-care (01) ==
LOC: NCHCN 09:43
PROVIDERS: PCP Nurse Practitioner Family; Visit Provider Nurse Practitioner Family
DX: E78.41 Elevated Lipoprotein(a) (principal)
CPT/HCPCS: 80061; 83721